=== PATIENT | female | born 1995 | race Caucasian/White ===

== ENCOUNTER → 2016-12-03 | Outpatient (CLI) | payer OTHER ==
[~2016-12-03] MED LIST: MOTR200T44 PO; TYLE167L PO
[2016-12-03 10:34] LABS: MEAN CORPUSCULAR HEMOGLOBIN 32.2 pg (27.0-33.0); MEAN CORPUSCULAR HGB CONC 34.5 g/dl (32.0-36.5); MEAN CORPUSCULAR VOLUME 93.5 fl (80.0-96.0); RED CELL DISTRIBUTION WIDTH 13.2 % (11.5-14.5); WHITE BLOOD COUNT 7.2 K/mm3 (4.0-10.0)
== END ==
LOC: M LAB 09:27
PROVIDERS: ATTEND Advanced Practice Midwife
DX: Z36 Encounter for antenatal screening of mother (principal)

== ENCOUNTER → 2017-02-01 | Outpatient (REF) | payer OTHER | LOC: M LAB REF 17:12 | PROVIDERS: ATTEND Obstetrics & Gynecology | DX: Z36 Encounter for antenatal screening of mother (principal) ==

== ENCOUNTER → 2017-02-24 | Outpatient (REF) | payer OTHER | LOC: M WUC 11:44 | PROVIDERS: ATTEND Physician Assistant | DX: J04.0 Acute laryngitis (principal) ==

== ENCOUNTER 2017-03-07 01:05 | Inpatient (IN) | payer OTHER ==
[2017-03-07] VITALS (7 sets, daily range): BP systolic 117–145; BP diastolic 72–83
[~2017-03-07] VITALS: Ht 165.1 cm; Wt 82.0 kg
[2017-03-07 04:12] LABS: MEAN CORPUSCULAR HEMOGLOBIN 31.3 pg (27.0-33.0); MEAN CORPUSCULAR HGB CONC 33.1 g/dl (32.0-36.5); MEAN CORPUSCULAR VOLUME 94.5 fl (80.0-96.0); RED CELL DISTRIBUTION WIDTH 13.1 % (11.5-14.5); WHITE BLOOD COUNT 10.6 K/mm3 (4.0-10.0)
[2017-03-07] MEDS ORDERED: PROMETHAZINE INJ 25 MG/ML VIAL (J2550) IV ONE (04:15)
[2017-03-07] MEDS ORDERED: BUTORPHANOL 2 MG/ML INJ (J0595) IV ONE (04:15)
[2017-03-07] MEDS ORDERED: OXYTOCIN 30 UNITS IN 0.9% NaCl 500ML IV BAG (J2590) As Ordered ONE (04:19)
[2017-03-07] MEDS ORDERED: LR 1,000 ML IV SCH (06:00)
[2017-03-07] MEDS ORDERED: OXYTOCIN DRIP 30 UNITS in APPROPRIATE DILUENT 1 EA IV SCH (06:35)
[2017-03-07] MEDS ORDERED: ACETAMINOPHEN 500 MG TAB PO PRN (06:45)
[2017-03-07] MEDS ORDERED: DIBUCAINE 1% OINTMENT 30GM TOP PRN (06:45)
[2017-03-07] MEDS ORDERED: ANUSOL HC CREAM 30GM TOP PRN (06:45)
[2017-03-07] MEDS ORDERED: IBUPROFEN 800 MG TAB PO PRN (06:45)
[2017-03-07] MEDS ORDERED: RHOGAM 300 MCG (1500 IU) INJ (J2790) IM SCH (06:45)
[2017-03-07] MEDS ORDERED: DOCUSATE SODIUM 100 MG CAP PO PRN (06:45)
[2017-03-07] MEDS ORDERED: METHYLERGONOVINE MALEATE 0.2 MG TAB PO PRN (06:45)
[2017-03-07] MEDS ORDERED: MEASLES,MUMPS,RUBELLA VACCINE INJ (MMR-II) (90707) SC SCH (06:45)
[2017-03-07] MEDS ORDERED: MOM 30ML SUSPENSION UDC PO PRN (06:45)
--- NOTE | 2017-03-07 07:27 | DN ---
DATE OF DELIVERY: 03/07/2017 TIME OF : 0613 hours. GENDER: Male. WEIGHT: 3480 grams or 7 pounds, 11 ounces. ANESTHESIA: None. ESTIMATED BLOOD LOSS: 300 mL. LACERATIONS: None. COUNTS: 5 laparotomy sponges accounted for prior to and after delivery. DELIVERY NOTE: On March 07, 2017 at 0613 hours, Ms. Dallas a 21-year-old 3, now para 2, had a spontaneous vaginal delivery of a live born male infant, scores of 8 and 9. Head was delivered OP over an intact perineum followed by delivery of anterior and posterior shoulders. Infant was then handed to mom with a good cry. Cord was then clamped times two, was cut by the father of the baby under my direction. Cord blood was then obtained. Placenta was drained and delivered grossly intact. A premixed bag of 500 mL of normal saline with 30 units of pitocin was bolused along with uterine massage until the uterus was firm. On inspection the cervix, vagina, and perineum was grossly intact and hemostatic. Mom and baby were recovering in stable condition.
--- NOTE | 2017-03-07 07:27 | HPE ---
DATE OF ADMISSION: 03/07/2017 REASON FOR ADMISSION: Labor. HISTORY OF PRESENT ILLNESS: Ms Dallas is a 21-year-old, , 3, para 1 who presents at 40 weeks 4 days estimated gestational age by a first trimester ultrasound with complaints of contractions. She reports contractions started earlier in the evening and have increased in intensity and frequency. She reports active movement. Denies any vaginal bleeding. Shortly upon presentation, she had a spontaneous rupture of membranes of clear fluid. Her course has been unremarkable. She initiated care the first trimester and has been appropriate throughout. PAST MEDICAL HISTORY: None. PAST SURGICAL HISTORY: None. MEDICATIONS: vitamins. ALLERGIES: PENICILLIN. SOCIAL HISTORY: Denies any alcohol, tobacco or drug use during her . OBSTETRICAL HISTORY: She is a 3 with para 1. She has had one term vaginal delivery. She has proven to 8 pounds, 3 ounces. PHYSICAL EXAMINATION: VITAL SIGNS: Stable. She is afebrile. She is a category I heart tracing with contractions on tocometer. GENERAL APPEARANCE: She is well appearing in no acute distress. LUNGS: Clear to auscultation bilaterally. CARDIOVASCULAR: Heart regular rate and rhythm. ABDOMEN: Gravid. Nontender. CERVICAL EXAM: She is 5 cm dilated, completely effaced, -1 station, grossly ruptured. LABS: Blood type O negative. Antibody screen is negative. Rubella immune. RPR nonreactive. Hepatitis surface antigen is negative. HIV is negative. Hepatitis C was nonreactive. Chlamydia and gonorrhea screening is negative. She had a 1-hour Glucola which was normal. She is GBS negative. ASSESSMENT: 1. Ms. Dallas is a 21-year-old 3, para 1 who is at 40 weeks 4 days estimated gestational age here with spontaneous rupture of membranes. 2. Reassuring status. PLAN: 1. Admit to labor and delivery. CBC, RPR type and screen. 2. Anticipate spontaneous vaginal delivery.
[2017-03-07] MEDS: PRENATAL VITAMIN TAB PO SCH (08:15)
[2017-03-08 06:05] VITALS: BP 123/73
[2017-03-08] MEDS ORDERED: PRENTAB9 PO (07:25)
[2017-03-08] MEDS ORDERED: ACET50TA PO (07:25)
[2017-03-08] MEDS ORDERED: IBUP-1114 PO (07:25)
[2017-03-08] MEDS: PRENATAL VITAMIN TAB PO SCH (09:00)
== END 2017-03-08 18:10 | disposition home or self-care (01) | DRG 560 ==
LOC: M LDO 01:05 → M LDI 03:46 → M OBS 09:02
PROVIDERS: ADMIT Obstetrics & Gynecology; ATTEND Obstetrics & Gynecology
PROC: 10E0XZZ Delivery of Products of Conception, External Approach (ICD-10-PCS; principal; 2017-03-07)
DX: O48.0 Post-term pregnancy (principal); Z37.0 Single live birth; Z3A.40 40 weeks gestation of pregnancy

== ENCOUNTER → 2017-08-10 | Outpatient (REF) | payer OTHER ==
[~2017-08-10] MED LIST changes: +ACET50TA PO; +IBUP-1114 PO; +PRENTAB9 PO
== END ==
LOC: M LAB REF 16:57
PROVIDERS: ATTEND Obstetrics & Gynecology
DX: Z11.3 Encounter for screening for infections with a predominantly sexual mode of transmission (principal); Z12.4 Encounter for screening for malignant neoplasm of cervix

== ENCOUNTER → 2017-11-05 | Outpatient (REF) | payer OTHER ==
[2017-11-05 19:52] LABS: APPEARANCE, URINE MANUAL CLOUDY (CLEAR); COLOR, URINE MANUAL YELLOW (YELLOW)
[2017-11-05 19:53] LABS: BILIRUBIN, URINE MANUAL NEGATIVE (NEGATIVE); BLOOD URINE MANUAL NEGATIVE (NEGATIVE); GLUCOSE, URINE (UA) MANUAL NEGATIVE (NEGATIVE); KETONE, URINE MANUAL 1+ mg/dL (NEGATIVE); LEUKOCYTE ESTERASE, URINE MAN POSITIVE (NEGATIVE); MICROSCOPIC INDICATED? MAN YES (NO); NITRITE, URINE MANUAL NEGATIVE (NEGATIVE); PROTEIN, URINE MANUAL NEGATIVE (NEGATIVE); UROBILINOGEN, URINE MANUAL NORMAL (NORMAL)
[2017-11-05 20:08] LABS: AMORPHOUS SEDIMENT, URINE LARGE AMOUNT (NEGATIVE); BACTERIA, URINE SMALL AMOUNT; HYALINE CAST, URINE NONE SEEN /lpf (0-1); MUCUS, URINE SMALL AMOUNT (NEGATIVE); RBC, URINE 0-1 /hpf (0-3); SQUAMOUS EPITHELIAL CELL URINE SMALL AMOUNT /hpf (SMALL AMT)
[2017-11-05 20:09] LABS: MICROSCOPIC EXAM PERFORMED
[2017-11-05 20:50] LABS: CHLAMYDIA DNA AMPLIFICATION NEGATIVE (NEGATIVE); GC DNA AMPLIFICATION POSITIVE (NEGATIVE)
== END ==
LOC: M LAB REF 08:53
DX: N76.0 Acute vaginitis (principal)

== ENCOUNTER → 2017-11-07 | Outpatient (CLI) | payer OTHER ==
[2017-11-09 10:53] LABS: HEPATITIS B SURFACE ANTIGEN NEGATIVE (NEGATIVE)
[2017-11-09 11:11] LABS: HIV 1&2 SCREEN CENTAUR NEGATIVE (NEGATIVE)
== END ==
LOC: M WUC 12:02
DX: Z20.2 Contact with and (suspected) exposure to infections with a predominantly sexual mode of transmission (principal)
CPT/HCPCS: 87340

== ENCOUNTER → 2017-12-17 | Outpatient (REF) | payer OTHER ==
[2017-12-17 19:41] LABS: CHLAMYDIA DNA AMPLIFICATION NEGATIVE (NEGATIVE); GC DNA AMPLIFICATION NEGATIVE (NEGATIVE)
== END ==
LOC: M LAB REF 09:43
DX: R30.0 Dysuria (principal)

== ENCOUNTER 2018-06-08 20:48 | Emergency (ER) | payer OTHER, SELFPAY | END 2018-06-08 21:16 | disposition left against medical advice (07) | LOC: M ED 20:48 | DX: R07.0 Pain in throat (principal); Z53.21 Procedure and treatment not carried out due to patient leaving prior to being seen by health care provider ==

== ENCOUNTER 2018-06-25 20:31 | Emergency (ER) | payer OTHER ==
[2018-06-25] MEDS: cefTRIAXone SOD 1 GM VIAL (J0696) IM (22:15)
[2018-06-25] MEDS: AZITHROMYCIN 250 MG TAB PO (22:15)
[2018-06-25 23:55] LABS: CHLAMYDIA DNA AMPLIFICATION NEGATIVE (NEGATIVE); GC DNA AMPLIFICATION NEGATIVE (NEGATIVE)
== END 2018-06-25 22:54 | disposition home or self-care (01) ==
LOC: M ED 20:31
DX: N93.9 Abnormal uterine and vaginal bleeding, unspecified (principal); Z11.3 Encounter for screening for infections with a predominantly sexual mode of transmission; Z88.0 Allergy status to penicillin
CPT/HCPCS: J0696

== ENCOUNTER → 2018-09-20 | Outpatient (REF) | payer OTHER ==
[2018-09-20 22:30] LABS: INFLUENZA A AMPLIFICATION NEGATIVE (NEGATIVE); INFLUENZA B AMPLIFICATION NEGATIVE (NEGATIVE)
== END ==
LOC: M LAB REF 09:28
DX: J02.9 Acute pharyngitis, unspecified (principal); R50.9 Fever, unspecified
CPT/HCPCS: 87070

== ENCOUNTER → 2018-09-26 | Outpatient (REF) | payer OTHER ==
[2018-09-26 18:35] LABS: BASO % 0.6 % (0.0-1.0); EOS # 0.2 10^3/uL (0.0-0.50); EOS % 2.5 % (0.0-3.0); HEMATOCRIT 37.6 % (36.0-47.0); HEMOGLOBIN 12.8 g/dl (12.0-15.5); IMMATURE GRANULOCYTE % 0.1 % (0-3.0); LYMPH # 2.8 10^3/uL (1.5-6.5); LYMPH % 41.8 % (24.0-44.0); MONO # 0.6 10^3/uL (0.0-0.8); MONO % 8.5 % (0.0-5.0); NEUTROPHILS # 3.1 10^3/uL (1.8-7.7); NEUTROPHILS % 46.5 % (36.0-66.0); PLATELET COUNT, AUTOMATED 285 10^3/uL (150-450); RED BLOOD COUNT 4.13 10^6/uL (4.00-5.40); RED CELL DISTRIBUTION WIDTH 11.9 % (11.5-14.5); WHITE BLOOD COUNT 6.7 10^3/uL (4.0-10.0)
[2018-09-26 18:49] LABS: ALBUMIN 3.9 GM/DL (3.2-5.2); ALKALINE PHOSPHATASE 81 U/L (45-117); ALT/SGPT 33 U/L (12-78); ANION GAP 8 MEQ/L (8-16); AST/SGOT 18 U/L (7-37); BILIRUBIN,TOTAL 0.4 MG/DL (0.2-1.0); BLOOD UREA NITROGEN 17 MG/DL (7-18); CALCIUM LEVEL 9.2 MG/DL (8.5-10.1); CARBON DIOXIDE LEVEL 27 MEQ/L (21-32); CHLORIDE LEVEL 103 MEQ/L (98-107); CHOLESTEROL LEVEL 153 MG/DL (<200); CHOLESTEROL RISK RATIO 3.923 (<5); CREATININE FOR GFR 0.71 MG/DL (0.55-1.30); GLOMERULAR FILTRATION RATE > 60.0 (>60); GLUCOSE, FASTING 92 MG/DL (70-100); HDL CHOLESTEROL 39 MG/DL (>40); LDL CHOLESTEROL 88 MG/DL (<100); NON-HDL-C 114 MG/DL; POTASSIUM SERUM 4.2 MEQ/L (3.5-5.1); SODIUM LEVEL 138 MEQ/L (136-145); TOTAL PROTEIN 7.8 GM/DL (6.4-8.2); TRIGLYCERIDES LEVEL 128 MG/DL (<150)
[2018-09-26 18:51] LABS: TOTAL 25(OH) VITAMIN D 40.8 NG/ML (30.0-100.0)
[2018-09-26 20:57] LABS: CHLAMYDIA DNA AMPLIFICATION NEGATIVE (NEGATIVE); GC DNA AMPLIFICATION NEGATIVE (NEGATIVE)
[2018-09-27 11:02] LABS: HIV 1&2 SCREEN CENTAUR NEGATIVE (NEGATIVE)
== END ==
LOC: M LAB REF 17:41
DX: Z13.9 Encounter for screening, unspecified (principal)
CPT/HCPCS: 84443

== ENCOUNTER → 2018-10-13 | Outpatient (REF) | payer OTHER ==
[2018-10-13 21:47] LABS: APPEARANCE, URINE HAZY (CLEAR); BACTERIA, URINE AUTO NEGATIVE (NEGATIVE); BILIRUBIN, URINE AUTO NEGATIVE (NEGATIVE); BLOOD, URINE BLOOD NEGATIVE (NEGATIVE); COLOR, URINE YELLOW (YELLOW); GLUCOSE, URINE (UA) AUTO NEGATIVE (NEGATIVE); KETONE, URINE AUTO NEGATIVE (NEGATIVE); LEUKOCYTE ESTERASE, URINE AUTO NEGATIVE (NEGATIVE); MUCUS, URINE SMALL (NEGATIVE); NITRITE, URINE AUTO NEGATIVE (NEGATIVE); PROTEIN, URINE AUTO NEGATIVE (NEGATIVE); RBC, URINE AUTO 2 /HPF (0-3); SPECIFIC GRAVITY URINE AUTO 1.034 (1.002-1.035); SQUAMOUS EPITHELIAL CELL UR AU 4 /HPF (0-6); UROBILINOGEN, URINE AUTO 0.2 mg/dL (0.0-2.0); WBC, URINE AUTO 2 /HPF (0-3)
[2018-10-13 23:34] LABS: CHLAMYDIA DNA AMPLIFICATION NEGATIVE (NEGATIVE); GC DNA AMPLIFICATION NEGATIVE (NEGATIVE)
== END ==
LOC: M LAB REF 10-13 13:34
DX: N39.0 Urinary tract infection, site not specified (principal); Z20.2 Contact with and (suspected) exposure to infections with a predominantly sexual mode of transmission
CPT/HCPCS: 81001

== ENCOUNTER → 2019-03-06 | Outpatient (CLI) | payer OTHER ==
[~2019-03-06] MED LIST changes: -ACET50TA PO; +LIQUID POLIBAR PLUS 105% w/v 1900ML BTL As Ordered ONE; +MAPA500T2 PO
--- NOTE | 2019-03-07 14:43 | REP ---
Examination Requested: Barium and Air contrast Reason For Exam: I B S with nausea and diarrhea The procedure was performed by DARLYN Gonzalez, under the direct supervision of Dr. Mercado. The images were reviewed with Dr. Mercado. The tunneller film shows no organomegaly, or pathological masses. The test gas pattern is unremarkable. Liquid barium and air were instilled into the colon and retrograde flow of the barium air mixture. The colon is normal in position and contour. Postradiation bulla is unremarkable throughout. There is free flow of contrast to the cecum. A portion of the appendix is visualized. The colon is normal in course and caliber. Mild residual fecal material is noted. There is no annular constricting lesion identified. There are no polypoid masses identified. Impression: 1. Unremarkable barium enema 2.2 minutes of fluoroscopy time was utilized for this procedure. Reviewed by DARLYN Schwab 03/07/2019 11:59 A Electronically Signed by Corby Mercado MD 03/07/2019 02:34 P
== END ==
LOC: M RAD 08:38
PROVIDERS: ATTEND Internal Medicine Gastroenterology
DX: K58.0 Irritable bowel syndrome with diarrhea (principal); R11.0 Nausea

== ENCOUNTER → 2019-03-13 | Outpatient (CLI) | payer OTHER ==
[~2019-03-13] MED LIST changes: +E-Z-GAS II EFFERVESCENT PACKET (SODIUM BICARB./CITRIC ACID/SIMETHICONE) As Ordered ONE; +E-Z-HD 98% w/w 340GM SUSP BTL As Ordered ONE; +E-Z-PAQUE 96% w/w SUSP 176GM BTL As Ordered ONE; -LIQUID POLIBAR PLUS 105% w/v 1900ML BTL As Ordered ONE
--- NOTE | 2019-03-13 17:21 | REP ---
Upper GI Air Contrast with SBFT The procedure was performed by DARLYN Gonzalez, under the the direct supervision of Dr. Arriola. The images were reviewed with Dr. Arriola. The electronic sales and service technician film shows no organomegaly or pathological masses. The intestinal gas pattern appears normal. Liquid barium and gas producing crystals were given in the erect position as well as liquid barium in the prone oblique position in order to perform a double contrast upper GI examination. The oral and pharyngeal stages of deglutition were unremarkable. Esophageal transport is efficient and there is no esophagitis, stricture, or mucosal ring noted. Laryngeal penetration was noted. There is no hiatal hernia. Gastroesophageal reflux was noted to the level of the earline. The stomach oshea are normally outlined. The rugal folds are smooth and regular. There is no gastritis, neoplasm, or ulcer disease noted. The duodenal oshea are normally outlined. The mucosal folds are smooth and regular. There is no duodenitis, peptic ulcer disease, or neoplasm noted. The visualized portion of the proximal small bowel appears normal in course and caliber. The barium column was followed through the small bowel to the level of the terminal ileum. Small bowel transit time was approximately 120 minutes. During fluoroscopy gentle palpation shows all loops are freely mobile and pliable. There are no fixed or angulated loops. The small bowel mucosal pattern is normal in course and caliber. There is no transition to suggest a partial small-bowel obstruction. Spot filming of the terminal ileum shows it to be unremarkable. Impression; 1. Laryngeal penetration without aspiration. 2. Gastroesophageal reflux to the level of the earline. 0.8 minutes of fluoroscopy time was utilized for this procedure. Reviewed by DARLYN Schwab 03/13/2019 05:03 P Electronically Signed by Aki Arriola MD 03/13/2019 05:10 P
== END ==
LOC: M RAD 08:41
PROVIDERS: ATTEND Internal Medicine Gastroenterology
DX: K58.0 Irritable bowel syndrome with diarrhea (principal); K21.9 Gastro-esophageal reflux disease without esophagitis

== ENCOUNTER → 2019-04-20 | Outpatient (REF) | payer OTHER ==
[~2019-04-20] MED LIST changes: -E-Z-GAS II EFFERVESCENT PACKET (SODIUM BICARB./CITRIC ACID/SIMETHICONE) As Ordered ONE; -E-Z-HD 98% w/w 340GM SUSP BTL As Ordered ONE; -E-Z-PAQUE 96% w/w SUSP 176GM BTL As Ordered ONE
[2019-04-20 23:22] LABS: CHLAMYDIA DNA AMPLIFICATION NEGATIVE (NEGATIVE); GC DNA AMPLIFICATION NEGATIVE (NEGATIVE)
== END ==
LOC: M LAB REF 14:51
PROVIDERS: ATTEND Physician Assistant
DX: R30.0 Dysuria (principal); Z20.2 Contact with and (suspected) exposure to infections with a predominantly sexual mode of transmission

== ENCOUNTER → 2019-06-23 | Outpatient (REF) | payer OTHER ==
[2019-06-23 20:43] LABS: CHLAMYDIA DNA AMPLIFICATION NEGATIVE (NEGATIVE); GC DNA AMPLIFICATION NEGATIVE (NEGATIVE)
== END ==
LOC: M LAB REF 13:46
PROVIDERS: ATTEND Physician Assistant Medical
DX: Z11.3 Encounter for screening for infections with a predominantly sexual mode of transmission (principal)

== ENCOUNTER 2019-09-07 10:17 | Emergency (ER) | payer OTHER ==
[~2019-09-07] VITALS: Ht 165.1 cm; Wt 72.7 kg
[2019-09-07] MEDS ORDERED: DOXY100C37 (11:11)
[2019-09-07] MEDS ORDERED: MICR1TAB18 (11:11)
[2019-09-07] MEDS ORDERED: AZEL1SPR3 (11:11)
[2019-09-07] MEDS ORDERED: CYCL10TA PO (11:26)
[2019-09-07] MEDS ORDERED: IBUP80TA PO (11:26)
[2019-09-07 11:31] VITALS: BP 125/81
== END 2019-09-07 11:32 | disposition home or self-care (01) ==
LOC: M ED 10:17
DX: S13.4XXA Sprain of ligaments of cervical spine, initial encounter (principal); S23.3XXA Sprain of ligaments of thoracic spine, initial encounter; V49.49XA Driver injured in collision with other motor vehicles in traffic accident, initial encounter; Y92.410 Unspecified street and highway as the place of occurrence of the external cause; M62.838 Other muscle spasm; F41.9 Anxiety disorder, unspecified; Z79.3 Long term (current) use of hormonal contraceptives; Z88.0 Allergy status to penicillin

== ENCOUNTER → 2019-11-19 | Outpatient (REF) | payer OTHER ==
[~2019-11-19] MED LIST changes: +AZEL1SPR3; +CYCL10TA PO; +DOXY100C37; +IBUP80TA PO; +MICR1TAB18
[2019-11-19 22:51] LABS: CHLAMYDIA DNA AMPLIFICATION NEGATIVE (NEGATIVE); GC DNA AMPLIFICATION NEGATIVE (NEGATIVE)
== END ==
LOC: M LAB REF 20:12
PROVIDERS: ATTEND Physician Assistant
DX: N76.0 Acute vaginitis (principal)

== ENCOUNTER → 2019-12-13 | Outpatient (REF) | payer OTHER | LOC: M SFHCWAGY 12:35 | PROVIDERS: ATTEND Nurse Practitioner Family | DX: Z12.4 Encounter for screening for malignant neoplasm of cervix (principal) ==

== ENCOUNTER → 2020-02-01 | Outpatient (REF) | payer OTHER ==
[2020-02-01 19:24] LABS: APPEARANCE, URINE HAZY (CLEAR); BACTERIA, URINE AUTO 1+ (NEGATIVE); BILIRUBIN, URINE AUTO NEGATIVE (NEGATIVE); BLOOD, URINE BLOOD NEGATIVE (NEGATIVE); COLOR, URINE YELLOW (YELLOW); GLUCOSE, URINE (UA) AUTO NEGATIVE (NEGATIVE); KETONE, URINE AUTO NEGATIVE (NEGATIVE); LEUKOCYTE ESTERASE, URINE AUTO 1+ (NEGATIVE); MUCUS, URINE SMALL (NEGATIVE); NITRITE, URINE AUTO NEGATIVE (NEGATIVE); PROTEIN, URINE AUTO NEGATIVE (NEGATIVE); RBC, URINE AUTO 1 /HPF (0-3); SQUAMOUS EPITHELIAL CELL UR AU 8 /HPF (0-6); UROBILINOGEN, URINE AUTO 0.2 mg/dL (0.0-2.0); WBC, URINE AUTO 8 /HPF (0-3)
[2020-02-01 21:04] LABS: CHLAMYDIA DNA AMPLIFICATION POSITIVE (NEGATIVE); GC DNA AMPLIFICATION NEGATIVE (NEGATIVE)
== END ==
LOC: M LAB REF 18:25
PROVIDERS: ATTEND Nurse Practitioner Family
DX: R30.0 Dysuria (principal)

== ENCOUNTER → 2020-02-22 | Outpatient (REF) | payer OTHER ==
[~2020-02-22] MED LIST changes: +CYCL-707 PO; -CYCL10TA PO
[2020-02-22 20:49] LABS: CHLAMYDIA DNA AMPLIFICATION NEGATIVE (NEGATIVE); GC DNA AMPLIFICATION NEGATIVE (NEGATIVE)
== END ==
LOC: M LAB REF 16:14
PROVIDERS: ATTEND Nurse Practitioner Family
DX: Z11.3 Encounter for screening for infections with a predominantly sexual mode of transmission (principal)

== ENCOUNTER → 2020-08-29 | Outpatient (REF) | payer OTHER | LOC: M WUC 09:45 | PROVIDERS: ATTEND Nurse Practitioner Family | DX: N76.0 Acute vaginitis (principal); Z11.3 Encounter for screening for infections with a predominantly sexual mode of transmission ==

== ENCOUNTER → 2020-09-16 | Outpatient (CLI) | payer OTHER | LOC: M LABSMTC 12:58 | PROVIDERS: ATTEND Family Medicine | DX: Z20.828 Contact with and (suspected) exposure to other viral communicable diseases (principal) ==

== ENCOUNTER → 2021-01-01 | Outpatient (REF) | payer OTHER | LOC: M LAB REF 11:23 | PROVIDERS: ATTEND Physician Assistant | DX: Z11.3 Encounter for screening for infections with a predominantly sexual mode of transmission (principal); N91.2 Amenorrhea, unspecified ==

== ENCOUNTER → 2022-09-01 | Outpatient (REF) | payer OTHER ==
[~2022-09-01] MED LIST changes: +DOXY-443; -DOXY100C37; -MICR1TAB18; +NORE1TAB94
== END ==
LOC: M PLALAB 13:23
PROVIDERS: ATTEND Nurse Practitioner Family
DX: Z11.3 Encounter for screening for infections with a predominantly sexual mode of transmission (principal)

== ENCOUNTER → 2023-04-14 | Outpatient (REF) | payer OTHER | LOC: M PLALAB 11:16 | PROVIDERS: ATTEND Nurse Practitioner Family | DX: Z12.4 Encounter for screening for malignant neoplasm of cervix (principal); R87.810 Cervical high risk human papillomavirus (HPV) DNA test positive; R87.610 Atypical squamous cells of undetermined significance on cytologic smear of cervix (ASC-US) ==

== ENCOUNTER → 2023-05-16 | Outpatient (REF) | payer OTHER | LOC: M PLALAB 16:11 | PROVIDERS: ATTEND Obstetrics & Gynecology | DX: R87.610 Atypical squamous cells of undetermined significance on cytologic smear of cervix (ASC-US) (principal) ==

== ENCOUNTER → 2023-07-15 | Outpatient (REF) | payer OTHER ==
[2023-07-15 17:09] LABS: BASO # 0.1 10^3/uL (0.0-0.2); BASO % 0.8 % (0.0-1.0); EOS # 0.2 10^3/uL (0.0-0.5); EOS % 3.1 % (0.0-3.0); HEMATOCRIT 40.7 % (36.0-47.0); HEMOGLOBIN 13.3 g/dl (12.0-15.5); LYMPH # 3.5 10^3/uL (1.5-5.0); LYMPH % 47.2 % (24.0-44.0); MEAN CORPUSCULAR HEMOGLOBIN 29.9 pg (27.0-33.0); MEAN CORPUSCULAR HGB CONC 32.7 g/dl (32.0-36.5); MEAN CORPUSCULAR VOLUME 91.5 fl (80.0-96.0); MONO # 0.7 10^3/uL (0.0-0.8); MONO % 9.3 % (2.0-8.0); NEUTROPHILS # 2.9 10^3/uL (1.5-8.5); NEUTROPHILS % 39.5 % (36.0-66.0); PLATELET COUNT, AUTOMATED 321 10^3/uL (150-450); RED BLOOD COUNT 4.45 10^6/uL (4.00-5.40); WHITE BLOOD COUNT 7.3 10^3/uL (4.0-10.0)
[2023-07-15 17:40] LABS: THYROID STIMULATING HORMONE 1.477 uIU/ML (0.55-4.78)
[2023-07-15 17:41] LABS: FREE T4 1.03 NG/DL (0.89-1.76)
[2023-07-15 17:43] LABS: ALBUMIN 3.6 G/DL (3.2-5.2); ALKALINE PHOSPHATASE 81 U/L (46-116); ALT/SGPT 26 U/L (7.0-40); AST/SGOT 14 U/L (<34); BILIRUBIN,TOTAL 0.2 MG/DL (0.3-1.2); BLOOD UREA NITROGEN 12 MG/DL (9-23); CALCIUM LEVEL 9.1 MG/DL (8.5-10.1); CARBON DIOXIDE LEVEL 25 MMOL/L (20-31); CHLORIDE LEVEL 106 MMOL/L (98-107); CREATININE FOR GFR 0.65 MG/DL (0.55-1.30); GLOMERULAR FILTRATION RATE > 60.0 (>60); GLUCOSE, FASTING 73 MG/DL (60-100); POTASSIUM SERUM 4.3 MMOL/L (3.5-5.1); SODIUM LEVEL 138 MMOL/L (136-145); TOTAL PROTEIN 7.5 G/DL (5.7-8.2)
== END ==
LOC: M LAB REF 16:24
PROVIDERS: ATTEND Family Medicine Addiction Medicine
DX: Z68.32 Body mass index [BMI] 32.0-32.9, adult (principal)

== ENCOUNTER → 2023-10-20 | Outpatient (REF) | payer OTHER | LOC: M LAB REF 16:33 | PROVIDERS: ATTEND Family Medicine Addiction Medicine | DX: J02.9 Acute pharyngitis, unspecified (principal) ==

== ENCOUNTER → 2024-04-16 | Outpatient (REF) | payer OTHER ==
[~2024-04-16] MED LIST changes: +DOXY-323; -DOXY-443
[2024-04-18 19:07] LABS: HPV APTIMA Detected (Not Detected)
== END ==
LOC: M SFHCWAGY 14:52
PROVIDERS: ATTEND Nurse Practitioner Family
DX: Z12.4 Encounter for screening for malignant neoplasm of cervix (principal); Z77.9 Other contact with and (suspected) exposures hazardous to health

== ENCOUNTER → 2024-08-17 | Outpatient (REF) | payer OTHER ==
[~2024-08-17] MED LIST changes: -DOXY-323; +DOXY-441
[2024-08-17 13:34] LABS: HIV 1&2 SCREEN NEGATIVE (NEGATIVE)
[2024-08-17 13:42] LABS: HEPATITIS C VIRUS ABY INDEX 0.03 INDEX (<0.8)
[2024-08-17 15:07] LABS: Trichomonas vaginalis (AMP) NOT DETECTED (NEGATIVE)
[2024-08-17 15:30] LABS: GC DNA AMPLIFICATION NEGATIVE (NEGATIVE)
== END ==
LOC: M LAB REF 11:57
PROVIDERS: ATTEND Family Medicine Addiction Medicine
DX: Z20.2 Contact with and (suspected) exposure to infections with a predominantly sexual mode of transmission (principal)

== ENCOUNTER → 2025-03-18 | Outpatient (REF) | payer OTHER ==
[2025-03-18 14:29] LABS: ALBUMIN 3.9 G/DL (3.2-5.2); ALKALINE PHOSPHATASE 77 U/L (35-104); ALT/SGPT 18 U/L (7.0-40); AST/SGOT 14 U/L (<34); BILIRUBIN,TOTAL 0.4 MG/DL (0.3-1.2); BLOOD UREA NITROGEN 12 MG/DL (9-23); CALCIUM LEVEL 9.4 MG/DL (8.5-10.1); CARBON DIOXIDE LEVEL 29 MMOL/L (20-31); CHLORIDE LEVEL 106 MMOL/L (98-107); CHOLESTEROL LEVEL 153 MG/DL (<200); CHOLESTEROL RISK RATIO 3.08 (<5); CREATININE FOR GFR 0.72 MG/DL (0.55-1.30); GLOMERULAR FILTRATION RATE > 90.0 (>60); GLUCOSE, FASTING 87 MG/DL (60-100); HDL CHOLESTEROL 49.6 MG/DL (>40); LDL CHOLESTEROL 85.6 MG/DL (<100); NON-HDL-C 103.4 MG/DL; POTASSIUM SERUM 4.3 MMOL/L (3.5-5.1); SODIUM LEVEL 143 MMOL/L (136-145); TOTAL PROTEIN 7.7 G/DL (5.7-8.2); TRIGLYCERIDES LEVEL 89 MG/DL (<150)
[2025-03-18 14:32] LABS: BASO # 0.1 10^3/uL (0.0-0.2); BASO % 0.8 % (0.0-1.0); EOS # 0.2 10^3/uL (0.0-0.5); EOS % 3.5 % (0.0-3.0); HEMATOCRIT 40.7 % (36.0-47.0); HEMOGLOBIN 13.4 g/dl (12.0-15.5); LYMPH # 2.4 10^3/uL (1.5-5.0); LYMPH % 39.8 % (24.0-44.0); MEAN CORPUSCULAR HEMOGLOBIN 31.2 pg (27.0-33.0); MEAN CORPUSCULAR HGB CONC 32.9 g/dl (32.0-36.5); MEAN CORPUSCULAR VOLUME 94.9 fl (80.0-96.0); MONO # 0.5 10^3/uL (0.0-0.8); MONO % 8.4 % (2.0-8.0); NEUTROPHILS # 2.8 10^3/uL (1.5-8.5); NEUTROPHILS % 47.3 % (36.0-66.0); PLATELET COUNT, AUTOMATED 262 10^3/uL (150-450); RED BLOOD COUNT 4.29 10^6/uL (4.00-5.40)
[2025-03-18 15:06] LABS: HEPATITIS C VIRUS ABY INDEX 0.04 INDEX (<0.8)
[2025-03-18 15:29] LABS: Trichomonas vaginalis (AMP) NOT DETECTED (NEGATIVE)
[2025-03-18 15:53] LABS: GC DNA AMPLIFICATION NEGATIVE (NEGATIVE)
[2025-03-18 16:13] LABS: HIV 1&2 SCREEN REACTIVE (NEGATIVE)
[2025-03-21 11:03] LABS: HIV 1 AB NEGATIVE (NEGATIVE); HIV 2 AB NEGATIVE (NEGATIVE); HIV AG/AB, 4TH GEN REPEATEDLY REACTIVE (NON-REACTIVE)
== END ==
LOC: M LAB REF 12:13
PROVIDERS: ATTEND Family Medicine Addiction Medicine
DX: Z11.3 Encounter for screening for infections with a predominantly sexual mode of transmission (principal)

== ENCOUNTER → 2025-04-29 | Outpatient (REF) | payer OTHER ==
[~2025-04-29] MED LIST changes: +NORE-23; -NORE1TAB94
[2025-04-29 12:20] LABS: Trichomonas vaginalis (AMP) NOT DETECTED (NEGATIVE)
[2025-04-29 12:43] LABS: GC DNA AMPLIFICATION NEGATIVE (NEGATIVE)
[2025-05-01 13:39] LABS: HPV APTIMA Not Detected (Not Detected)
== END ==
LOC: M SFHCWAGY 10:02
PROVIDERS: ATTEND Nurse Practitioner Family
DX: Z12.4 Encounter for screening for malignant neoplasm of cervix (principal); B97.7 Papillomavirus as the cause of diseases classified elsewhere; R87.612 Low grade squamous intraepithelial lesion on cytologic smear of cervix (LGSIL)

== ENCOUNTER → 2025-06-20 | Outpatient (REF) | payer OTHER ==
[2025-06-20 13:57] LABS: Trichomonas vaginalis (AMP) NOT DETECTED (NEGATIVE)
[2025-06-20 14:21] LABS: GC DNA AMPLIFICATION NEGATIVE (NEGATIVE)
[2025-06-20 15:42] LABS: HIV 1&2 SCREEN NEGATIVE (NEGATIVE)
[2025-06-20 15:55] LABS: HEPATITIS C VIRUS ABY INDEX < 0.02 INDEX (<0.8)
== END ==
LOC: M LAB REF 12:13
PROVIDERS: ATTEND Family Medicine Addiction Medicine
DX: Z11.3 Encounter for screening for infections with a predominantly sexual mode of transmission (principal)

== ENCOUNTER → 2025-09-11 | Outpatient (REF) | payer OTHER ==
[2025-09-11 16:05] LABS: Trichomonas vaginalis (AMP) NOT DETECTED (NEGATIVE)
[2025-09-11 16:29] LABS: GC DNA AMPLIFICATION NEGATIVE (NEGATIVE)
[2025-09-11 19:26] LABS: HEPATITIS C VIRUS ABY INDEX < 0.02 INDEX (<0.8)
[2025-09-11 20:54] LABS: HIV 1&2 SCREEN REACTIVE (NEGATIVE)
[2025-09-13 13:02] LABS: HIV INTERPRETATION HIV NEGATIVE (NON REACT)
== END ==
LOC: M LAB REF 14:27
PROVIDERS: ATTEND Family Medicine Addiction Medicine
DX: Z11.3 Encounter for screening for infections with a predominantly sexual mode of transmission (principal)